=== PATIENT | female | born 1995 | race Caucasian/White ===

== ENCOUNTER 2017-11-06 14:23 | Emergency (ER) | payer BC ==
[2017-11-06 15:04] VITALS: BP 122/72
[2017-11-06] MEDS ORDERED: Lidocaine 1% MPF* 2 ML VIAL INJ ONE (15:08)
--- NOTE | 2017-11-06 15:10 | UC ---
Laceration HPI - HPI Summary HPI Summary: cut outside of R leg on a piece of glass that was sticking out of her garbage bag. pt notes piece was large and no risk, concern or sensation of Fb. tetanus is less than 10 years. - History Of Current Complaint Chief Complaint: UCLaceration Stated Complaint: RT LEG LAC Time Seen by Provider: 11/06/17 15:04 Hx Obtained From: Patient Hx Last Menstrual Period: 10/16/17 Pain Intensity: 4 Aggravating Factors: Nothing - Allergies/Home Medications Allergies/Adverse Reactions: Allergies Allergy/AdvReac Type Severity Reaction Status Date / Time No Known Allergies Allergy Verified 11/06/17 14:59 PMH/Surg Hx/FS Hx/Imm Hx Previously Healthy: Yes - Surgical History Surgical History: None - Family History Known Family History: Positive: None - Social History Occupation: Student - just graduated Lives: With Family Alcohol Use: Rare Substance Use Type: None Smoking Status (MU): Never Smoked Tobacco - Immunization History Vaccination Up to Date: Yes Review of Systems Constitutional: Negative Skin: Other - laceration R leg Eyes: Negative ENT: Negative Respiratory: Negative Cardiovascular: Negative Gastrointestinal: Negative Genitourinary: Negative Motor: Negative Neurovascular: Negative Musculoskeletal: Negative Neurological: Negative Psychological: Negative Is Patient Immunocompromised?: No All Other Systems Reviewed And Are Negative: Yes Physical Exam Triage Information Reviewed: Yes Appearance: Well-Appearing Vital Signs: Initial Vital Signs Temp 99.3 F 11/06/17 14:59 Pulse 57 11/06/17 14:59 Resp 17 11/06/17 14:59 BP 122/72 11/06/17 14:59 Pulse Ox 100 11/06/17 14:59 Vital Signs Reviewed: Yes Eyes: Positive: Conjunctiva Clear ENT: Positive: Normal ENT inspection Neck: Positive: Supple, Nontender, No Lymphadenopathy Respiratory: Positive: Lungs clear, Normal breath sounds Cardiovascular: Positive: RRR, No Murmur Abdomen Description: Positive: Nontender, No Organomegaly, Soft Bowel Sounds: Positive: Present Musculoskeletal: Positive: ROM Intact Neurological: Positive: Alert Psychological: Positive: Age Appropriate Behavior Skin Exam: Normal, Other - 1.5 cm laceration R lower leg. no bleeding but fat visible. s/v/m LLE is intact. Laceration Course/Dx - Course/Dx Course Of Treatment: Procedure: site prep betadine, local with 1% lidocaine 2ml. explored, no FB's. irrigated sterile NaCl. prep betadine and closed 5-0 nylon and 2 simple plus 1 horizontal mattress stitch. sterile technique used. pt tolerated well. dressed by nursing. - Differential Dx - Laceration/Wound Provider Diagnoses: 1.5 CM LACERATION r LOWER LEG Discharge - Sign-Out/Discharge Documenting (check all that apply): Discharge/Admit/Transfer - Discharge Plan Condition: Improved Disposition: HOME Patient Education Materials: Care For Your Stitches (DC) Referrals: Gustavo Hernandez DO [Primary Care Provider] - Additional Instructions: FOLLOW UP YOUR DOCTOR OR RETURN HERE IN 7-10 DAYS FOR SUTURE REMOVAL - Billing Disposition and Condition Condition: IMPROVED Disposition: HOME
== END 2017-11-06 15:51 | disposition home or self-care (01) ==
LOC: UCCORT 14:23
DX: S81.811A Laceration without foreign body, right lower leg, initial encounter (principal); W25.XXXA Contact with sharp glass, initial encounter; Y93.9 Activity, unspecified; Y92.9 Unspecified place or not applicable
CPT/HCPCS: 12001; 99212; G0463

== ENCOUNTER 2017-11-16 09:57 | Emergency (ER) | payer BC, MEDICAID ==
[2017-11-16 10:15] VITALS: BP 114/76
--- NOTE | 2017-11-16 10:39 | UC ---
HPI Wound/Suture Re-check - HPI Summary HPI Summary: here for suture removal laceration right espinoza area 10 days ago sutures were place here , no pain , no swelling, no redness or discharge - History Of Current Complaint Chief Complaint: UCLaceration Stated Complaint: SUTURE REMOVAL Time Seen by Provider: 11/16/17 10:30 Hx Obtained From: Patient Hx Last Menstrual Period: 11/11/17 Onset/Duration: Sudden Onset, Lasting Days - 10, Still Present Severity: Moderate Pain Intensity: 0 Procedure Type: suture removal Surgery Date: 11/06/17 - Allergies/Home Medications Allergies/Adverse Reactions: Allergies Allergy/AdvReac Type Severity Reaction Status Date / Time No Known Allergies Allergy Verified 11/16/17 10:15 PMH/Surg Hx/FS Hx/Imm Hx Previously Healthy: Yes - Surgical History Surgical History: None - Family History Known Family History: Positive: None Negative: Diabetes - Social History Alcohol Use: None Substance Use Type: None Smoking Status (MU): Never Smoked Tobacco - Immunization History Most Recent Tetanus Shot: UTD Vaccination Up to Date: Yes Review of Systems Constitutional: Negative Skin: Negative Eyes: Negative ENT: Negative Respiratory: Negative Cardiovascular: Negative Gastrointestinal: Negative Genitourinary: Negative Motor: Negative Neurovascular: Negative Musculoskeletal: Negative Neurological: Negative Psychological: Negative Is Patient Immunocompromised?: No All Other Systems Reviewed And Are Negative: Yes Physical Exam Triage Information Reviewed: Yes Appearance: Well-Appearing, No Pain Distress, Well-Nourished Vital Signs: Initial Vital Signs Temp 98.4 F 11/16/17 10:09 Pulse 74 11/16/17 10:09 Resp 18 11/16/17 10:09 BP 114/76 11/16/17 10:09 Pulse Ox 99 11/16/17 10:09 ENT Exam: Normal Neck exam: Normal Neck: Positive: Supple Respiratory: Positive: Chest non-tender, Lungs clear, Normal breath sounds Cardiovascular: Positive: RRR, No Murmur, Pulses Normal Skin: Positive: Other - 1 cm laceration right espinoza , suture x 2 intact , wound is clean and dry , no erythema, no discharge 2 stiches were removed Course/Dx - Differential Dx - Laceration/Wound Provider Diagnoses: laceration right lower leg. suture removal Discharge - Sign-Out/Discharge Documenting (check all that apply): Discharge/Admit/Transfer - Discharge Plan Condition: Stable Disposition: HOME Patient Education Materials: Stitches Removal (ED) Referrals: Gustavo Hernandez DO [Primary Care Provider] - If Needed - Billing Disposition and Condition Condition: STABLE Disposition: HOME
== END 2017-11-16 10:40 | disposition home or self-care (01) ==
LOC: UCCORT 09:57
DX: Z48.02 Encounter for removal of sutures (principal)
CPT/HCPCS: 99211; G0463

== ENCOUNTER 2019-03-04 11:57 | Emergency (ER) | payer BC, MEDICAID ==
--- OUTSIDE RECORDS SUMMARY | 2019-03-04 12:16 | XMS REPORT | Continuity of Care Document ---
:1995 External Reference #:[id number] Author Name Payton Leach (transmitted by agent of provider Gustavo Hernandez) Address [address] [place] [id number] Problems Active Problems Provider Date Low back pain Gustavo Hernandez D.O. Onset: 06/07/2015 Arthralgia of the pelvic region and thigh Gustavo Hernandez D.O. Onset: 2014 Trochanteric bursitis Gustavo Hernandez D.O. Onset: 06/07/2015 Iron deficiency anemia Gustavo Hernandez D.O. Onset: 01/11/2017 Neck pain Gustavo Hernandez D.O. Onset: 01/11/2017 Migraine with typical aura Gustavo Hernandez D.O. Onset: 01/11/2017 Vitamin D deficiency Gustavo Hernandez D.O. Onset: 01/11/2017 Social History Type Date Description Comments Sex Unknown Smokeless Tobacco Never Used Smokeless Tobacco ETOH Use Denies alcohol use Recreational Drug Use Denies Drug Use Tobacco Use Start: Unknown Patient has never smoked Smoking Status Reviewed: 02/07/19 Patient has never smoked Exercise Type/Frequency Exercises regularly Sun Exposure Does not use sunscreen Seat Belt/Car Seat Seat Belt Use - Yes Allergies, Adverse Reactions, Alerts Description No Known Drug Allergies Medications Active Medications SIG Qnty Indications Ordering Provider Date Vitamin D3 take one capsule 90caps E55.9 Gustavo Hernandez, 01/11/2017 5000Unit by mouth every D.O. Capsules day or 7 tablets once a week Sumatriptan spray in 1 3units G43.109 Vitaliy Persaud, 08/28/2016 20mg/Act nostril for M.D. Solution migraine headache. ok to repeat in 2 hours if headache is not gone. not more than 2 headaches/week. History Medications Doxycycline Hyclate 1 twice a day 28caps Gustavo Hernandez, 11/29/2018 - 100mg for 14 days D.O. 12/13/2018 Capsules Medications Administered in Office Medication SIG Qnty Indications Ordering Provider Date TB Intradermal Test Payton Leach 10/06/2018 Injection TB Intradermal Test Nurse's Schedule 11/08/2017 Injection H1N1 Swine Flu Vaccine Unknown 09/19/2009 Injection Immunizations CPT Code Status Date Vaccine Lot # [id number] Given 02/23/2018 Influenza Virus Vaccine, Quadrivalent, Split, [id number] Preservative Free 15220 Given 06/24/2017 Influenza Virus Vaccine, Quadrivalent, Split, [id number] Preservative Free 82129 Given 06/07/2015 Influenza Virus Vaccine, Quadrivalent, Split, [id number] Preservative Free 26327 Given 05/29/2013 flu mist - live influenza virus vaccine for intranasal use 68528 Given 11/22/2012 Menactra Menningitis Vaccine 03982 Given 11/22/2012 Adacel or Boostrix, TDaP 39451 Given 03/17/2011 flu mist - live influenza virus vaccine for intranasal use 28949 Given 03/19/2010 flu mist - live influenza virus vaccine for intranasal use 82731 Given 09/17/2008 Gardasil HPV vaccine 54065 Given 01/05/2008 Menactra Menningitis Vaccine 70139 Given 01/05/2008 Gardasil HPV vaccine 28331 Given 01/05/2008 Hep A, Ped/Adolscent, 2 Dose 17355 Given 05/17/2007 flu mist - live influenza virus vaccine for intranasal use 09175 Given 05/17/2007 Gardasil HPV vaccine 20883 Given 12/17/2006 Menactra Menningitis Vaccine 54152 Given 12/17/2006 Adacel or Boostrix, TDaP 14487 Given 12/17/2006 Hep A, Ped/Adolscent, 2 Dose 66137 Given 06/16/2006 Flu, Split Virus 3Yrs 77635 Given 04/13/2005 Flu, Split Virus 3Yrs 64816 Given 01/25/2001 Poliomyelitis Immunization 88357 Given 01/24/2001 MMR Virus Immunization 95120 Given 01/24/2001 Dtap Immunization (Tripedia) (Infanrix) 18860 Given 11/30/1997 Hepb-Hib 20024 Given 11/30/1997 Poliomyelitis Immunization 19403 Given 11/30/1997 Dtap Immunization (Tripedia) (Infanrix) 41637 Given 09/20/1997 Dtap Immunization (Tripedia) (Infanrix) 58898 Given 09/20/1997 MMR Virus Immunization 63944 Given 09/20/1997 Hepb-Hib 68938 Given 04/18/1996 Hepb-Hib 15747 Given 04/18/1996 Poliomyelitis Immunization 25654 Given 04/18/1996 Dtap Immunization (Tripedia) (Infanrix) 98454 Given 01/03/1996 Hepb-Hib 36279 Given 01/03/1996 Poliomyelitis Immunization 82108 Given 01/03/1996 Dtap Immunization (Tripedia) (Infanrix) 77047 Given 1995 Hep B Immunization, Ped/Adolescent To 11 Yrs Vital Signs Date Vital Result Comment 02/07/2019 5:08pm BP Systolic 108 mmHg BP Diastolic 70 mmHg 11/29/2018 2:18pm BP Systolic 126 mmHg BP Diastolic 84 mmHg Body Temperature 98.2 F Weight 214.00 lb Results Test Date Facility Test Result H/L Range Note [facility] Inhouse 10/06/2018 In House Ua Bilirubin small Ua Specific [place] 1.030 Ua PH 5.0 Laboratory test finding 10/06/2018 In House Hemoglobin 13.4 Procedures Date Code Description Status 02/07/2019 71387 Omt 7-8 Body Regions Completed 11/05/2018 93974 Omt 7-8 Body Regions Completed 10/06/2018 41457 Visual Acuity Screening Test Completed Medical Devices Description No Information Available Encounters Type Date Location Provider Dx Diagnosis Office Visit 11/29/2018 Main Office Gustavo Hernandez, S40.862A Insect bite 2:00p D.O. (nonvenomous) of left upper arm, init encntr A69.20 Lyme disease, unspecified Z20.818 Contact w and exposure to oth bact communicable diseases Office Visit 11/05/2018 9:45a Main Office Gustavo Hernandez, M54.6 Pain in thoracic D.O. spine M99.00 Segmental and somatic dysfunction of head region M99.01 Segmental and somatic dysfunction of cervical region M99.02 Segmental and somatic dysfunction of thoracic region M99.05 Segmental and somatic dysfunction of pelvic region M99.08 Segmental and somatic dysfunction of rib cage M99.04 Segmental and somatic dysfunction of sacral region M99.03 Segmental and somatic dysfunction of lumbar region Office Visit 10/06/2018 8:00a Main Office Meagan Brush, Z02.89 Encounter for other P.A. administrative examinations Z11.1 Encounter for screening for respiratory tuberculosis Z13.5 Encounter for screening for eye and ear disorders Z13.0 Encntr screen for dis of the bld/bld-form org/immun mechnsm Assessments Date Code Description Provider 02/07/2019 M54.6 Pain in thoracic spine Gustavo Hernandez, D.O. 02/07/2019 M54.5 Low back pain CarriekGustavo, D.O. 02/07/2019 M99.03 Segmental and somatic dysfunction of lumbar [place], Gustavo , D.O. region 02/07/2019 M99.04 Segmental and somatic dysfunction of sacral [place], Gustavo , D.O. region 02/07/2019 M99.05 Segmental and somatic dysfunction of pelvic [place], Gustavo , D.O. region 02/07/2019 M99.00 Segmental and somatic dysfunction of head [place], Gustavo, D.O. region 02/07/2019 M99.02 Segmental and somatic dysfunction of [place], Gustavo, D.O. thoracic region 02/07/2019 M99.01 Segmental and somatic dysfunction of [place], D.O. cervical region 02/07/2019 M99.08 Segmental and somatic dysfunction of rib [place], Gustavo, D.O. cage 02/07/2019 M99.06 Segmental and somatic dysfunction of lower [place] , D.O. extremity 11/29/2018 S40.862A Insect bite (nonvenomous) of left upper arm, Gustavo Hernandez, D.O. initial encount 11/29/2018 A69.20 Lyme disease, unspecified Gustavo Hernandez, D.O. 11/29/2018 Z20.818 Contact with and (suspected) exposure to SopGustavo paul, D.O. other bacterial com 11/05/2018 M54.6 Pain in thoracic spine Gustavo Hernandez D.O. 11/05/2018 M99.00 Segmental and somatic dysfunction of head Gustavo Hernandez D.O. region 11/05/2018 M99.01 Segmental and somatic dysfunction of Gustavo Hernandez D.O. cervical region 11/05/2018 M99.02 Segmental and somatic dysfunction of Gustavo Hernandez D.O. thoracic region 11/05/2018 M99.05 Segmental and somatic dysfunction of pelvic Gustavo Hernandez D.O. region 11/05/2018 M99.08 Segmental and somatic dysfunction of rib Gustavo Hernandez D.O. cage 11/05/2018 M99.04 Segmental and somatic dysfunction of sacral Gustavo Hernandez D.O. region 11/05/2018 M99.03 Segmental and somatic dysfunction of lumbar Gustavo Hernandez D.O. region 10/08/2018 Z11.1 Encounter for screening for respiratory Nurse's Schedule tuberculosis 10/06/2018 Z02.89 Encounter for other administrative Meagan [place], P.A. examinations 10/06/2018 Z11.1 Encounter for screening for respiratory Meagan [place], P.A. tuberculosis 10/06/2018 Z13.5 Encounter for screening for eye and ear Meagan [place], P.A. disorders 10/06/2018 Z13.0 Encounter for screening for diseases of the Meagan [place], P.A. blood and blood- Plan of Treatment 02/07/2019 - Gustavo Hernandez D.O.M54.6 Pain in thoracic exrhzW92.5 Low back painFollow up:as ozqxtxO95.03 Segmental and somatic dysfunction of lumbar rothmiY31.04 Segmental and somatic dysfunction of sacral akasvxS45.05 Segmental and somatic dysfunction of pelvic cphgqyN94.00 Segmental and somatic dysfunction of head dbwwaiQ81.02 Segmental and somatic dysfunction of thoracic acjyjcS32.01 Segmental and somatic dysfunction of cervical kutjmwC24.08 Segmental and somatic dysfunction of rib cageM99.06 Segmental and somatic dysfunction of lower extremity Functional Status Description No Information Available Mental Status Description No Information Available Referrals Description No Information Available
--- OUTSIDE RECORDS SUMMARY | 2019-03-04 12:16 | XMS REPORT | Continuity of Care Document ---
:1995 External Reference #:[id number] Author Name Gustavo Hernandez D.O. Address [address] [place] [id number] Problems Active Problems Provider Date Low back [...] CPT Code Status Date Vaccine Lot # 37037 Given 02/23/2018 Influenza Virus Vaccine, Quadrivalent, Split, [id number] Preservative Free 81027 Given 06/24/2017 Influenza Virus Vaccine, Quadrivalent, Split, [id number] Preservative Free 77645 Given 06/07/2015 Influenza Virus Vaccine, Quadrivalent, Split, [id number] Preservative Free 33337 Given 05/29/2013 flu mist - live influenza virus vaccine for intranasal use 67072 Given 11/22/2012 Menactra Menningitis Vaccine 47478 Given 11/22/2012 Adacel or Boostrix, TDaP 91274 Given 03/17/2011 flu mist - live influenza virus vaccine for intranasal use 96938 Given 03/19/2010 flu mist - live influenza virus vaccine for intranasal use 67923 Given 09/17/2008 Gardasil HPV vaccine 30941 Given 01/05/2008 Menactra Menningitis Vaccine 57025 Given 01/05/2008 Gardasil HPV vaccine 06199 Given 01/05/2008 Hep A, Ped/Adolscent, 2 Dose 40948 Given 05/17/2007 flu mist - live influenza virus vaccine for intranasal use 78169 Given 05/17/2007 Gardasil HPV vaccine 74946 Given 12/17/2006 Menactra Menningitis Vaccine 77962 Given 12/17/2006 Adacel or Boostrix, TDaP 51134 Given 12/17/2006 Hep A, Ped/Adolscent, 2 Dose 05262 Given 06/16/2006 Flu, Split Virus 3Yrs 33512 Given 04/13/2005 Flu, Split Virus 3Yrs 38590 Given 01/25/2001 Poliomyelitis Immunization 01017 Given 01/24/2001 MMR Virus Immunization 70449 Given 01/24/2001 Dtap Immunization (Tripedia) (Infanrix) 29847 Given 11/30/1997 Hepb-Hib 70779 Given 11/30/1997 Poliomyelitis Immunization 95521 Given 11/30/1997 Dtap Immunization (Tripedia) (Infanrix) 34003 Given 09/20/1997 Dtap Immunization (Tripedia) (Infanrix) 98831 Given 09/20/1997 MMR Virus Immunization 43145 Given 09/20/1997 Hepb-Hib 76001 Given 04/18/1996 Hepb-Hib 60614 Given 04/18/1996 Poliomyelitis Immunization 76198 Given 04/18/1996 Dtap Immunization (Tripedia) (Infanrix) 08381 Given 01/03/1996 Hepb-Hib 20974 Given 01/03/1996 Poliomyelitis Immunization 00698 Given 01/03/1996 Dtap Immunization (Tripedia) (Infanrix) 58318 Given 1995 Hep B Immunization, Ped/Adolescent To 11 Yrs Vital Signs Date Vital Result Comment 02/07/2019 5:08pm BP Systolic 108 mmHg BP Diastolic 70 mmHg 11/29/2018 2:18pm BP Systolic 126 mmHg BP Diastolic 84 mmHg Body Temperature 98.2 F Weight 214.00 lb Results Test Date Facility Test Result H/L Range Note [facility] Inhouse 10/06/2018 In House Ua Bilirubin small Ua Specific [place] 1.030 Ua PH 5.0 Laboratory test finding 10/06/2018 In House Hemoglobin 13.4 Procedures Date Code Description Status 02/07/2019 55763 Omt 7-8 Body Regions Completed 11/05/2018 57780 Omt 7-8 Body Regions Completed 10/06/2018 91939 Visual Acuity Screening Test Completed Medical Devices [...] screen for dis of the b[facility] Assessments Date Code Description Provider 02/07/2019 M54.6 Pain in thoracic spine Gustavo Hernandez D.O. 02/07/2019 M54.5 Low back pain Gustavo Hernandez, D.O. 02/07/2019 M99.03 Segmental and somatic dysfunction [...] 02/07/2019 M99.01 Segmental and somatic dysfunction of SopchakGustavo, D.O. cervical region 02/07/2019 M99.08 Segmental and somatic dysfunction of rib S[place], D.O. cage 02/07/2019 M99.06 Segmental and somatic dysfunction of lower [place] , D.O. extremity 11/29/2018 S40.862A Insect bite (nonvenomous) of left upper arm, Gustavo Hernandez D.O. initial encount 11/29/2018 A69.20 Lyme disease, unspecified Gustavo Hernandez D.O. 11/29/2018 Z20.818 Contact with and (suspected) exposure to Gustavo Hernandez D.O. other bacterial com 11/05/2018 M54.6 Pain in thoracic spine Gustavo Hernandez D.O. 11/05/2018 M99.00 Segmental and somatic dysfunction of head SopGustavo paul D.O. region 11/05/2018 M99.01 Segmental and somatic dysfunction of [place], D.O. cervical region 11/05/2018 M99.02 Segmental and somatic dysfunction of SopGustavo paul, D.O. thoracic region 11/05/2018 M99.05 Segmental and somatic dysfunction of pelvic Sop[place]ustavo , D.O. region 11/05/2018 M99.08 Segmental and somatic dysfunction of rib Gustavo Hernandez, D.O. cage 11/05/2018 M99.04 Segmental and somatic dysfunction of sacral Gustavo Hernandez , D.O. region 11/05/2018 M99.03 Segmental and somatic dysfunction of lumbar SopGustavo paul , D.O. region 10/08/2018 Z11.1 Encounter for screening for respiratory Nurse's Schedule tuberculosis 10/06/2018 Z02.89 Encounter for other administrative Meagan [place], P.A. examinations 10/06/2018 Z11.1 Encounter for screening for respiratory Meagan [place], P.A. tuberculosis 10/06/2018 Z13.5 Encounter for screening for eye and ear Meagan [place], P.A. disorders 10/06/2018 Z13.0 Encounter for screening for diseases of the Meagan [place], P.A. blood and blood- Plan of Treatment 02/07/2019 - Gustavo Hernandez D.O.M54.6 Pain in thoracic nsudhG49.5 Low back painFollow up:as nahhfdB60.03 Segmental and somatic dysfunction of lumbar zhzzpfF38.04 Segmental and somatic dysfunction of sacral echogeU68.05 Segmental and somatic dysfunction of pelvic vsptgtI83.00 Segmental and somatic dysfunction of head xgspdfM40.02 Segmental and somatic dysfunction of thoracic vnaxwyF77.01 Segmental and somatic dysfunction of cervical uemwnaR07.08 Segmental and somatic dysfunction of rib cageM99.06 Segmental and somatic dysfunction of lower extremity Functional Status Description No Information Available Mental Status Description No Information Available Referrals Description No Information Available
--- OUTSIDE RECORDS SUMMARY | 2019-03-04 12:16 | XMS REPORT | Continuity of Care Document ---
:1995 External Reference #:[id number] Author Name Gustavo Hernandez D.O. Address [address] [place] [id number] Problems Active Problems Provider Date Low back [...] CPT Code Status Date Vaccine Lot # [id number] Given 02/23/2018 Influenza Virus Vaccine, Quadrivalent, Split, [id number] Preservative Free 11499 Given 06/24/2017 Influenza Virus Vaccine, Quadrivalent, Split, [id number] Preservative Free 95782 Given 06/07/2015 Influenza Virus Vaccine, Quadrivalent, Split, [id number] Preservative Free 51457 Given 05/29/2013 flu mist - live influenza virus vaccine for intranasal use 11396 Given 11/22/2012 Menactra Menningitis Vaccine 77002 Given 11/22/2012 Adacel or Boostrix, TDaP 55256 Given 03/17/2011 flu mist - live influenza virus vaccine for intranasal use 55805 Given 03/19/2010 flu mist - live influenza virus vaccine for intranasal use 54163 Given 09/17/2008 Gardasil HPV vaccine 06874 Given 01/05/2008 Menactra Menningitis Vaccine 12047 Given 01/05/2008 Gardasil HPV vaccine 18309 Given 01/05/2008 Hep A, Ped/Adolscent, 2 Dose 72166 Given 05/17/2007 flu mist - live influenza virus vaccine for intranasal use 21205 Given 05/17/2007 Gardasil HPV vaccine 46390 Given 12/17/2006 Menactra Menningitis Vaccine 05511 Given 12/17/2006 Adacel or Boostrix, TDaP 15209 Given 12/17/2006 Hep A, Ped/Adolscent, 2 Dose 88839 Given 06/16/2006 Flu, Split Virus 3Yrs 00781 Given 04/13/2005 Flu, Split Virus 3Yrs 58842 Given 01/25/2001 Poliomyelitis Immunization 29258 Given 01/24/2001 MMR Virus Immunization 80868 Given 01/24/2001 Dtap Immunization (Tripedia) (Infanrix) 92551 Given 11/30/1997 Hepb-Hib 58421 Given 11/30/1997 Poliomyelitis Immunization 90686 Given 11/30/1997 Dtap Immunization (Tripedia) (Infanrix) 25963 Given 09/20/1997 Dtap Immunization (Tripedia) (Infanrix) 81125 Given 09/20/1997 MMR Virus Immunization 81453 Given 09/20/1997 Hepb-Hib 96743 Given 04/18/1996 Hepb-Hib 75150 Given 04/18/1996 Poliomyelitis Immunization 70163 Given 04/18/1996 Dtap Immunization (Tripedia) (Infanrix) 36109 Given 01/03/1996 Hepb-Hib 95194 Given 01/03/1996 Poliomyelitis Immunization 13298 Given 01/03/1996 Dtap Immunization (Tripedia) (Infanrix) 86037 Given 1995 Hep B Immunization, Ped/Adolescent To 11 Yrs Vital Signs Date Vital Result Comment 02/07/2019 5:08pm BP Systolic 108 mmHg BP Diastolic 70 mmHg 11/29/2018 2:18pm BP Systolic 126 mmHg BP Diastolic 84 mmHg Body Temperature 98.2 F Weight 214.00 lb Results Test Date Facility Test Result H/L Range Note [facility] 10/06/2018 In House [facility] Bilirubin small [facility] Specific [place] 1.030 [facility] PH 5.0 Laboratory test finding 10/06/2018 In House Hemoglobin 13.4 Procedures Date Code Description Status 02/07/2019 99308 Omt 7-8 Body Regions Completed 11/05/2018 39608 Omt 7-8 Body Regions Completed 10/06/2018 10346 Visual Acuity Screening Test Completed Medical Devices [...] screen for dis [facility] Ass[facility] Date Code Description Provider 02/07/2019 [...] 11/05/2018 M54.6 Pain in thoracic spine Gustavo Hernadnez D.O. 11/05/2018 M99.00 Segmental and somatic dysfunction [...] - Gustavo Hernandez D.O.M54.6 Pain in thoracic pqsesF75.5 Low back painFollow up:as traokrV03.03 Segmental and somatic dysfunction of lumbar limjgcY02.04 Segmental and somatic dysfunction of sacral zfcdqqA38.05 Segmental and somatic dysfunction of pelvic bvvysaO41.00 Segmental and somatic dysfunction of head vcxhqzE75.02 Segmental and somatic dysfunction of thoracic efqhnuK93.01 Segmental and somatic dysfunction of cervical bqkkykL78.08 Segmental and somatic dysfunction of rib cageM99.06 Segmental and somatic dysfunction of lower extremity Functional Status Description No Information Available Mental Status Description No Information Available Referrals Description No Information Available
[2019-03-04 13:15] VITALS: BP 109/73
[2019-03-04] MEDS ORDERED: Albuterol HFA INHALER* 8 gm MDI INH ONE (14:34)
[2019-03-04] MEDS ORDERED: predniSONE TAB* 20 MG PO ONE (14:34)
--- NOTE | 2019-03-04 14:37 | UC ---
Respiratory Complaint HPI - HPI Summary HPI Summary: The pt is a 23 yo female with an 11-12 day hx of nasal congestion /post nasal drip/sinus pressure/bilateral otalgia/cough/chest tightness and fatigue No f/c no CP or sob hx of pneumonia and bronchitis has used inhalers in past - History of Current Complaint Chief Complaint: UCRespiratory Stated Complaint: COUGH,EAR PAIN,CONGESTION Time Seen by Provider: 03/04/19 14:26 Hx Obtained From: Patient Hx Last Menstrual Period: 02/06/19 ?: No Onset/Duration: Lasting Days - many Timing: Constant Severity Initially: Mild Severity Currently: Moderate Pain Intensity: 0 Pain Scale Used: 0-10 Numeric Character: Cough: Productive Aggravating Factors: Exertion Alleviating Factors: Nothing Associated Signs And Symptoms: Positive: Wheezing, URI, Nasal Congestion, Hoarseness, Sinus Discomfort - Allergies/Home Medications Allergies/Adverse Reactions: Allergies Allergy/AdvReac Type Severity Reaction Status Date / Time No Known Allergies Allergy Verified 03/04/19 13:00 Home Medications: Home Medications SUMAtriptan [Imitrex] 0 mg NA SEE INSTRUCTIONS 03/04/19 [History Confirmed 03/04] PMH/Surg Hx/FS Hx/Imm Hx Previously Healthy: Yes Respiratory History: Bronchitis, Pneumonia - Surgical History Surgical History: None - Family History Known Family History: Positive: Hypertension Negative: Diabetes, Respiratory Disease - Social History Alcohol Use: None Substance Use Type: None Smoking Status (MU): Never Smoked Tobacco - Immunization History Most Recent Tetanus Shot: UTD Vaccination Up to Date: Yes Review of Systems All Other Systems Reviewed And Are Negative: Yes Constitutional: Positive: Fatigue Skin: Positive: Negative Eyes: Positive: Negative ENT: Positive: Ear Ache, Nasal Discharge, Sinus Congestion, Sinus Pain/ Tenderness Respiratory: Positive: Cough Cardiovascular: Positive: Negative Gastrointestinal: Positive: Negative Genitourinary: Positive: Negative Neurovascular: Positive: Negative Musculoskeletal: Positive: Negative Neurological: Positive: Negative Psychological: Positive: Negative Physical Exam Triage Information Reviewed: Yes Appearance: Well-Appearing, No Pain Distress, Well-Nourished Vital Signs: Initial Vital Signs Temp 98.6 F 03/04/19 13:02 Pulse 66 03/04/19 13:02 Resp 18 03/04/19 13:02 BP 109/73 03/04/19 13:02 Pulse Ox 99 03/04/19 13:02 Vital Signs Reviewed: Yes Eyes: Positive: Conjunctiva Clear ENT: Positive: Hearing grossly normal, Nasal congestion, Nasal drainage, TM bulging, Sinus tenderness, Uvula midline. Negative: Tonsillar swelling, Trismus , Muffled voice, Hoarse voice Neck: Positive: Supple, Nontender, No Lymphadenopathy Respiratory: Positive: No respiratory distress, No accessory muscle use, Wheezing - with forced expiration, Other: - bronchospastic cough Cardiovascular: Positive: RRR Musculoskeletal: Positive: Strength Intact, ROM Intact, No Edema Neurological: Positive: Alert Psychological Exam: Normal Skin Exam: Normal Respiratory Course/Dx - Differential Dx/Diagnosis Provider Diagnosis: Acute bronchitis with bronchospasm, Bilateral serous otitis media, Sinusitis Discharge ED - Sign-Out/Discharge Documenting (check all that apply): Patient Departure All imaging exams completed and their final reports reviewed: No Studies - Discharge Plan Condition: Stable Disposition: HOME Prescriptions: Amoxicillin PO (*) [Amoxicillin 875 MG (*)] 875 mg PO BID #14 tab Fluticasone NASAL SPRAY 50MCG* [Flonase NASAL SPRAY 50MCG*] 2 spray BOTH NARES BID #1 btl predniSONE [Deltasone 20 MG TAB] 40 mg PO DAILY #8 tab Patient Education Materials: Acute Bronchitis (ED), How to Use a Metered-Dose Inhaler and a Spacer (ED) Referrals: Gustavo Hernandez DO [Primary Care Provider] - 1 Week (recheck in 1-2 weeks if not better) Additional Instructions: I suggest you use afrin nasal spray Mon/Tues/Wed this week 2 sprays each nostril 3x day for 3 days recheck for new or worsening symptoms - Billing Disposition and Condition Condition: STABLE Disposition: Home
== END 2019-03-04 14:48 | disposition home or self-care (01) ==
LOC: UCCORT 11:57
DX: J20.9 Acute bronchitis, unspecified (principal); H65.93 Unspecified nonsuppurative otitis media, bilateral; J32.9 Chronic sinusitis, unspecified
CPT/HCPCS: 99213; A9270-GY; G0463; J7512